=== PATIENT | female | born 1970 | race Caucasian/White ===

== ENCOUNTER 2017-05-11 19:19 | Observation (INO) | payer SELFPAY ==
--- NOTE | 2017-05-11 20:29 | DR.GENAD ---
HPI - PCP Primary Care Physician: NFD - Complaint/Symptoms Chief Complaint Doctors Comments: History as stated. Patient denies fever, vomiting or diarrhea. The pain is sharp, not aggravated by motion, duration one day no modifying factors. Chief Complaint:: PT STATES" I GUESS IT STARTED YESTERDAY HAD PAIN IN RLQ I THINK IT MIGHT BE MY APPENDIXS I LOOKED ON LINE AND I'M HAVING THE SAME SYMPTOMS " - Source History Provided: Patient - Mode of Arrival Mode of Arrival: Ambulatory - Timing Onset of Chief Complaint: 05/10/17 PMH - PMH Past Medical History: No Past Surgical History: Yes Surgical History: - Family History History of Family Medical Conditions: Yes Family Medical History: Diabetes Mellitus, Cancer, Hypertension - Social History Type of Tobacco Use: Cigarettes Does any household member use tobacco: No Alcohol Use: Occasionally Do you use any recreational Drugs:: No Lives With: Family - infectious screening In the last 2 months have you had wt loss of >10#?: NO Have you had fever, night sweats or hemotysis?: No Have you traveled outside the country in the last 6 months?: No Isolation: Standard ROS - Review of Systems Constitutional: No Symptoms Reported Eyes: No Symptoms Reported ENTM: No Symptoms Reported Respiratoy: No Symptoms Reported Cardiovascular: No Symptoms Reported Gastrointestinal/Abdominal: Abdominal Pain Genitourinary: No Symptoms Reported Neurological: No Symptoms Reported Musculoskeletal: No Symptoms Reported Integumentary: No Symptoms Reported Hematologic/Lymphatic: No Symptoms Reported Endocrine: No Symptoms Reported Psychiatric: No Symptoms Reported All Other Systems: Reviewed and Negative PE - Vital Signs Vitals: Temperature 98.8 F Pulse Rate [Right Brachial] 83 Pulse Rate 114 Respiratory Rate 16 Blood Pressure [Right Arm] 100/58 Blood Pressure 118/80 O2 Sat by Pulse Oximetry 100 - General Limitations: Language Barrier General Appearance: Alert - Head Head Exam: Normal Inspection, Atraumatic - Eyes Eye exam: Normal Appearance, PERRL, EOMI - ENT ENT Exam: Normal Exam External Ear Exam: Normal External Inspection TM/Canal Exam: Bilateral Normal Nose Exam: Normal Nose Exam Mouth Exam: Normal Inspection Throat Exam: Normal Inspection - Neck Neck Exam: Normal Inspection, Full ROM - Chest Chest Inspection: Normal Inspection, Symmetric Chest Wall Rise - Respiratory Respiratory Exam: Normal Lung Sounds Bilat Respiratory Exam: Bilateral Clear to Auscultation - Cardiovascular Cardiovascular Exam: Regular Rate - Abdominal Exam Abdominal Exam: Normal Inspection Abdominal Tenderness: RLQ, Suprapubic - Extremities Extremities Exam: Normal Inspection, Full ROM - Back Back Exam: Normal Inspection - Neurologic Neurological Exam: Alert, Oriented X3, CN II-XII Intact - Psychiatric Psychiatric Exam: Normal Affect - Skin Skin Exam: Warm, Dry, Intact Course - Reevaluation 1st: Unchanged - Consultation Called: 01:40 (Dr Hudson recommended admit ) Call Returned: 01:30 (He will see this AM) ROR - Labs Reviewed Laboratory Results Reviewed?: Yes (CRP 114; UA 2+ leukocytes) Result Diagrams: 05/11/17 20:40 05/11/17 20:40 Laboratory: WBC 8.8 X10^3/uL (3.6-10.0) 05/11/17 20:40 RBC 4.37 X10^6/uL (3.5-5.4) 05/11/17 20:40 Hgb 13.8 g/dL (12.0-16.0) 05/11/17 20:40 Hct 39.1 % (36.0-47.0) 05/11/17 20:40 MCV 89.4 fL (80.0-100.0) 05/11/17 20:40 MCH 31.5 pg (27.0-34.0) 05/11/17 20:40 MCHC 35.3 g/dL (33.0-35.0) H 05/11/17 20:40 RDW 13.2 % (11.6-16.5) 05/11/17 20:40 Plt Count 187 X10^3/uL (150.0-450.0) 05/11/17 20:40 MPV 9.2 fL (7.4-11.0) 05/11/17 20:40 Neut % 64.1 % (42.0-75.0) 05/11/17 20:40 Lymph % 31.5 % (21.0-51.0) 05/11/17 20:40 Hyde % 4.0 % (0.0-13.0) 05/11/17 20:40 Eos % 0.2 % (0.9-2.9) L 05/11/17 20:40 Baso % 0.2 % (0.2-1.0) 05/11/17 20:40 Neut # 5.6 x10^3/uL (2.2-4.8) H 05/11/17 20:40 Lymph # 2.8 X10^3/uL (1.3-2.9) 05/11/17 20:40 Hyde # 0.4 x10^3/uL (0.3-0.8) 05/11/17 20:40 Eos # 0.0 x10^3/uL (0.0-0.2) 05/11/17 20:40 Baso # 0.0 X10^3/uL (0.0-0.1) 05/11/17 20:40 Absolute Nucleated RBC 0.0 /100WBC 05/11/17 20:40 Sodium 136 mmol/L (136-145) 05/11/17 20:40 Corrected Sodium TNP 05/11/17 20:40 Potassium 3.8 mmol/L (3.5-5.1) 05/11/17 20:40 Chloride 99 mmol/L (98-107) 05/11/17 20:40 Carbon Dioxide 30.3 mmol/L (21-32) 05/11/17 20:40 BUN 9 mg/dL (7-18) 05/11/17 20:40 Creatinine 0.76 mg/dL (0.55-1.02) 05/11/17 20:40 Est GFR (MDRD) Af Amer > 60 (>60) 05/11/17 20:40 Est GFR (MDRD) Non-Af > 60 (>60) 05/11/17 20:40 Glucose 96 mg/dL (65-99) 05/11/17 20:40 Calcium 8.7 mg/dL (8.5-10.1) 05/11/17 20:40 Corrected Calcium TNP 05/11/17 20:40 Total Bilirubin 0.70 mg/dL (0.2-1.0) 05/11/17 20:40 AST 20 Units/L (15-37) 05/11/17 20:40 ALT 19 Units/L (12-78) 05/11/17 20:40 Alkaline Phosphatase 108 Units/L (46-116) 05/11/17 20:40 C-Reactive Protein 114.60 mg/L (0-3.0) H 05/11/17 20:40 Total Protein 9.2 g/dL (6.4-8.2) H 05/11/17 20:40 Albumin 3.4 g/dL (3.4-5.0) 05/11/17 20:40 Globulin 5.8 g/dL (2.5-4.5) H 05/11/17 20:40 Albumin/Globulin Ratio 0.6 Ratio (1.1-2.1) L 05/11/17 20:40 Specimen Type Clean catch urine 05/11/17 20:35 Urine Color Yellow (YELLOW) 05/11/17 20:35 Urine Appearance Hazy (CLEAR) 05/11/17 20:35 Urine pH 6.0 (5.0 - 8.0) 05/11/17 20:35 Ur Specific Sanderson 1.015 (1.000-1.030) 05/11/17 20:35 Urine Protein 2+ (NEGATIVE) 05/11/17 20:35 Urine Glucose (UA) Negative (NEGATIVE) 05/11/17 20:35 Urine Ketones Negative (NEGATIVE) 05/11/17 20:35 Urine Occult Blood 1+ (NEGATIVE) 05/11/17 20:35 Urine Nitrite Negative (NEGATIVE) 05/11/17 20:35 Urine Bilirubin Negative (NEGATIVE) 05/11/17 20:35 Urine Urobilinogen 1+ (NORMAL) 05/11/17 20:35 Ur Leukocyte Esterase 2+ (NEGATIVE) 05/11/17 20:35 Urine RBC Rare /HPF (NEGATIVE) 05/11/17 20:35 Urine WBC 2 - 3 /HPF (NEGATIVE) 05/11/17 20:35 Ur Squamous Epith Cells Many /HPF (NEGATIVE) 05/11/17 20:35 Urine Bacteria Trace /HPF (NEGATIVE) 05/11/17 20:35 Ur Culture Indicated? No/not indicated 05/11/17 20:35 - XRAY XRAY Interpreted by: Radiologist (CT Abdom/Pelv:The appendix is enlarged and edematous. No abscess or free air. Findings are consistent with acute appenditis) - Diagnosis Discharge Problem: Acute appendicitis Qualifiers: Acute appendicitis type: unspecified acute appendicitis type Qualified Code(s) : K35.80 - Unspecified acute appendicitis - Discharge Plan Condition: Stable - Follow ups/Referrals Follow ups/Referrals: NFD,None [Primary Care Provider] - 3 days - Instructions
[2017-05-11] MEDS ORDERED: NS 1000 ML 1,000 ML IV ONE (20:32)
[2017-05-11] MEDS ORDERED: NS 1000 ML 1,000 ML ONE (20:34)
[2017-05-11] MEDS ORDERED: TORADOL 30 MG VIAL ONE (20:38)
[2017-05-11] MEDS ORDERED: TORADOL 30 MG VIAL IVP ONE (20:38)
[2017-05-11 20:49] LABS: BILIRUBIN,URINE NEGATIVE (NEGATIVE); BLOOD/HEMOGLOBIN,URINE 1+ (NEGATIVE); GLUCOSE, URINE NEGATIVE (NEGATIVE); KETONES,URINE NEGATIVE (NEGATIVE); LEUKOCYTE ESTERASE ,URINE 2+ (NEGATIVE); NITRITES,URINE NEGATIVE (NEGATIVE); PROTEIN,URINE 2+ (NEGATIVE); UROBILINOGEN,URINE 1+ (NORMAL)
[2017-05-11 20:49] LABS: BASOPHILS % (AUTO) 0.2 % (0.2-1.0); EOSINOPHILS % (AUTO) 0.2 % (0.9-2.9); HEMATOCRIT 39.1 % (36.0-47.0); HEMOGLOBIN 13.8 g/dL (12.0-16.0); LYMPHOCYTES # (AUTO) 2.8 X10^3/uL (1.3-2.9); LYMPHOCYTES % (AUTO) 31.5 % (21.0-51.0); MEAN CORPUSCULAR HEMOGLOBIN 31.5 pg (27.0-34.0); MEAN CORPUSCULAR HGB CONC 35.3 g/dL (33.0-35.0); MEAN CORPUSCULAR VOLUME 89.4 fL (80.0-100.0); MEAN PLATELET VOLUME 9.2 fL (7.4-11.0); MONOCYTES # (AUTO) 0.4 x10^3/uL (0.3-0.8); NEUTROPHILS # (AUTO) 5.6 x10^3/uL (2.2-4.8); NEUTROPHILS % (AUTO) 64.1 % (42.0-75.0); PLATELET COUNT 187 X10^3/uL (150.0-450.0); RED BLOOD COUNT 4.37 X10^6/uL (3.5-5.4); RED CELL DISTRIBUTION WIDTH 13.2 % (11.6-16.5); WHITE BLOOD COUNT 8.8 X10^3/uL (3.6-10.0)
[2017-05-11 20:52] LABS: APPEARANCE,URINE HAZY (CLEAR); COLOR,URINE YELLOW (YELLOW)
[2017-05-11 20:57] LABS: ALANINE AMINOTRANSFERASE 19 Units/L (12-78); ALBUMIN 3.4 g/dL (3.4-5.0); ALKALINE PHOSPHATASE 108 Units/L (46-116); ASPARTATE AMINO TRANSFERASE 20 Units/L (15-37); BLOOD UREA NITROGEN 9 mg/dL (7-18); CALCIUM 8.7 mg/dL (8.5-10.1); CARBON DIOXIDE 30.3 mmol/L (21-32); CHLORIDE 99 mmol/L (98-107); CREATININE 0.76 mg/dL (0.55-1.02); GLUCOSE 96 mg/dL (65-99); SODIUM 136 mmol/L (136-145); TOTAL PROTEIN 9.2 g/dL (6.4-8.2); eGFR BLACK RACES > 60 (>60); eGFR NON BLACK RACES > 60 (>60)
[2017-05-11 21:00] LABS: BACTERIA,URINE TRACE /HPF (NEGATIVE); RBC,URINE RARE /HPF (NEGATIVE); SQUAMOUS EPITHELIAL CELL,UR MANY /HPF (NEGATIVE)
[2017-05-12] MEDS ORDERED: MORPHINE SULFATE INJ 2 MG IVP ONE
[2017-05-12] MEDS ORDERED: MORPHINE SULFATE INJ 2 MG ONE (00:03)
[2017-05-12] MEDS ORDERED: NS 100 ML IV 100 ML IV ONE (00:36)
--- NOTE | 2017-05-12 01:19 | CT ---
EXAM: CT ABDOMEN AND PELVIS WITH CONTRAST INDICATION: Right lower quadrant pain COMPARISION: No priors available for comparison TECHNIQUE: Axial CT examination of the abdomen and pelvis was performed with intravenous contrast. The patient received intravenous contrast without adverse reaction. Coronal and sagittal reconstructions were c reated using the axial data. FINDINGS: The liver, spleen, pancreas, adrenal glands, kidneys, and gallbladder are normal. There is no eviden ce of biliary ductal dilatation. The aorta and inferior vena cava are normal in caliber. The bowel l oops are nonobstructed. No abnormal mass, lymphadenopathy, or fluid collection. Urinary bladder is normal. The appendix is edematous and enlarged and measures 1.5 cm in diameter. No abscess or free air. The regional skeleton is intact. IMPRESSION: The appendix is enlarged and edematous. No abscess or free air. Findings are consistent with acute a ppendicitis. Reported By:
[2017-05-12] MEDS ORDERED: LEVAQUIN PREMIX IV 750 MG 750 MG/150 ML BAG IV ONE ×2 (02:08→02:27)
[2017-05-12] MEDS ORDERED: MORPHINE SULFATE INJ 4 MG IVP PRN (02:19)
[2017-05-12] MEDS ORDERED: NS 1000 ML 1,000 ML ONE (02:27)
[2017-05-12 03:01] VITALS: BMI 20.9
[2017-05-12 03:34] LABS: BASOPHILS % (AUTO) 0.2 % (0.2-1.0); EOSINOPHILS % (AUTO) 0.6 % (0.9-2.9); HEMATOCRIT 33.7 % (36.0-47.0); HEMOGLOBIN 11.8 g/dL (12.0-16.0); LYMPHOCYTES # (AUTO) 1.9 X10^3/uL (1.3-2.9); LYMPHOCYTES % (AUTO) 33.6 % (21.0-51.0); MEAN CORPUSCULAR HEMOGLOBIN 31.5 pg (27.0-34.0); MEAN CORPUSCULAR HGB CONC 34.9 g/dL (33.0-35.0); MEAN CORPUSCULAR VOLUME 90.1 fL (80.0-100.0); MEAN PLATELET VOLUME 9.1 fL (7.4-11.0); MONOCYTES # (AUTO) 0.3 x10^3/uL (0.3-0.8); MONOCYTES % (AUTO) 4.7 % (0.0-13.0); NEUTROPHILS # (AUTO) 3.4 x10^3/uL (2.2-4.8); NEUTROPHILS % (AUTO) 60.9 % (42.0-75.0); PLATELET COUNT 158 X10^3/uL (150.0-450.0); RED BLOOD COUNT 3.74 X10^6/uL (3.5-5.4); RED CELL DISTRIBUTION WIDTH 13.4 % (11.6-16.5); WHITE BLOOD COUNT 5.5 X10^3/uL (3.6-10.0)
[2017-05-12 03:59] LABS: ALANINE AMINOTRANSFERASE 16 Units/L (12-78); ALBUMIN 2.8 g/dL (3.4-5.0); ALKALINE PHOSPHATASE 92 Units/L (46-116); ASPARTATE AMINO TRANSFERASE 16 Units/L (15-37); BLOOD UREA NITROGEN 9 mg/dL (7-18); CALCIUM 7.9 mg/dL (8.5-10.1); CARBON DIOXIDE 29.9 mmol/L (21-32); CHLORIDE 102 mmol/L (98-107); COR CA(FOR HYPOALB) 8.9 mg/dL (8.5-10.1); CREATININE 0.71 mg/dL (0.55-1.02); GLUCOSE 98 mg/dL (65-99); SODIUM 136 mmol/L (136-145); TOTAL PROTEIN 7.7 g/dL (6.4-8.2); eGFR BLACK RACES > 60 (>60); eGFR NON BLACK RACES > 60 (>60)
[2017-05-12] MEDS: NS 1000 ML 1,000 ML IV SCH (05:57)
[2017-05-12] MEDS ORDERED: XYLOCAINE 1 % (PLAIN) ONE (08:13)
[2017-05-12] MEDS ORDERED: NS 50 ML IV + SPIKE MINIBAG* 50 ML IV ONE (08:27)
[2017-05-12 08:39] LABS: SERUM PREGNANCY TEST, QUAL NEGATIVE <10 mIU/mL
[2017-05-12] MEDS: NS 1000 ML 1,000 ML ONE ×2 (08:40→09:02)
[2017-05-12] MEDS ORDERED: FENTANYL INJ 250 mcg ONE (08:47)
[2017-05-12] MEDS: CLEOCIN VIAL 600 MG ONE ×2 (08:52→08:55)
[2017-05-12] MEDS ORDERED: MARCAINE 0.25% WITH EPI IJ ONE (09:29)
[2017-05-12 09:34] LABS: BILIRUBIN,URINE NEGATIVE (NEGATIVE); BLOOD/HEMOGLOBIN,URINE 2+ (NEGATIVE); GLUCOSE, URINE NEGATIVE (NEGATIVE); KETONES,URINE NEGATIVE (NEGATIVE); LEUKOCYTE ESTERASE ,URINE 1+ (NEGATIVE); NITRITES,URINE NEGATIVE (NEGATIVE); PROTEIN,URINE 2+ (NEGATIVE); UROBILINOGEN,URINE NORMAL (NORMAL)
[2017-05-12] MEDS ORDERED: NS IRRIGATION 3000 ML 3,000 ML IR ONE (09:40)
[2017-05-12 09:49] LABS: AMORPHOUS SEDIMENT,UR TRACE /HPF (NEGATIVE); APPEARANCE,URINE CLEAR (CLEAR); BACTERIA,URINE NEGATIVE /HPF (NEGATIVE); COLOR,URINE YELLOW (YELLOW); MUCUS,URINE FEW /HPF (NEGATIVE); SQUAMOUS EPITHELIAL CELL,UR FEW /HPF (NEGATIVE)
[2017-05-12] MEDS ORDERED: REGLAN INJ 10 MG VIAL IVP PRN (10:28)
[2017-05-12] MEDS ORDERED: PHENERGAN INJ 25 MG IVP PRN (10:28)
[2017-05-12] MEDS ORDERED: BENADRYL INJ 50 MG VIAL IVP PRN (10:28)
[2017-05-12] MEDS ORDERED: DILAUDID INJ IVP PRN (10:28)
[2017-05-12] MEDS ORDERED: ZOFRAN INJ 4 MG VIAL IVP PRN ×2 (10:28→10:33)
[2017-05-12] MEDS ORDERED: BACTRIM DS TAB PO STA (10:43)
[2017-05-12] MEDS: CHECK PATCH XX SCH ×2 (11:38→21:38)
[2017-05-12] MEDS: NICODERM PATCH 21 MG/24 HR TD SCH (11:38)
[2017-05-12] MEDS ORDERED: ZOFRAN INJ 4 MG VIAL ONE (14:06)
[2017-05-12] MEDS ORDERED: SUPRANE IN ONE (14:06)
[2017-05-12] MEDS ORDERED: NORCURON INJ 10 MG VIAL ONE (14:06)
[2017-05-12] MEDS ORDERED: ROBINUL ONE (14:06)
[2017-05-12] MEDS ORDERED: NEOSTIGMINE INJ ONE (14:06)
[2017-05-12] MEDS ORDERED: DIPRIVAN VIAL ONE (14:06)
[2017-05-12] MEDS ORDERED: QUELICIN (OR ANECTINE) ONE (14:06)
[2017-05-12] MEDS ORDERED: DYLOJECT INJ ONE (14:06)
[2017-05-12] MEDS ORDERED: XYLOCAINE 2 % (PLAIN) ONE (14:06)
[2017-05-12] MEDS: PERCOCET TAB 5/325 MG PO PRN (21:42)
[2017-05-13] MEDS: PERCOCET TAB 5/325 MG PO PRN (04:42)
[2017-05-13 05:38] LABS: BASOPHILS % (AUTO) 0.3 % (0.2-1.0); EOSINOPHILS % (AUTO) 0.8 % (0.9-2.9); HEMATOCRIT 30.3 % (36.0-47.0); HEMOGLOBIN 10.7 g/dL (12.0-16.0); LYMPHOCYTES # (AUTO) 1.5 X10^3/uL (1.3-2.9); LYMPHOCYTES % (AUTO) 36.3 % (21.0-51.0); MEAN CORPUSCULAR HEMOGLOBIN 31.5 pg (27.0-34.0); MEAN CORPUSCULAR HGB CONC 35.2 g/dL (33.0-35.0); MEAN CORPUSCULAR VOLUME 89.3 fL (80.0-100.0); MEAN PLATELET VOLUME 10.1 fL (7.4-11.0); MONOCYTES # (AUTO) 0.2 x10^3/uL (0.3-0.8); MONOCYTES % (AUTO) 5.6 % (0.0-13.0); NEUTROPHILS # (AUTO) 2.4 x10^3/uL (2.2-4.8); PLATELET COUNT 144 X10^3/uL (150.0-450.0); RED BLOOD COUNT 3.39 X10^6/uL (3.5-5.4); RED CELL DISTRIBUTION WIDTH 13.6 % (11.6-16.5); WHITE BLOOD COUNT 4.1 X10^3/uL (3.6-10.0)
[2017-05-13] MEDS: NS 1000 ML 1,000 ML IV SCH (06:08)
[2017-05-13] MEDS: NICODERM PATCH 21 MG/24 HR TD SCH (09:20)
[2017-05-13] MEDS: CHECK PATCH XX SCH (09:21)
[2017-05-13 11:55] VITALS: BP 116/67
== END 2017-05-13 09:45 | disposition home or self-care (01) ==
LOC: ER 19:19 → MED/SURG 05-12 01:51
PROVIDERS: ADMIT Obstetrics & Gynecology Obstetrics; ATTEND Obstetrics & Gynecology Obstetrics
PROC: 0DTJ4ZZ Resection of Appendix, Percutaneous Endoscopic Approach (ICD-10-PCS; principal; 2017-05-12 08:30)
DX: K35.89 Other acute appendicitis (principal); R10.31 Right lower quadrant pain
CPT/HCPCS: 36415; 74022; 74177; 80053; 81001; 84703; 85025; 86140; 93005; 93010; 94760; 96365; 96374; 96375; 99284; A4216; A4222; S0020; G0378; J0330; J1885; J1956; J2001; J2270; J2405; J2710; J3010; J3490; S0077